=== PATIENT | male | born 1955 | race Caucasian/White ===

== ENCOUNTER → 2016-12-03 | Day surgery (SDC) | payer BC ==
[~2016-12-03] MED LIST: D5 LR 1000 ML 1,000 ML IV ONE; DIPRIVAN VIAL 20 ML ONE
[2016-12-03 11:52] VITALS: BP 137/85
== END ==
LOC: SURG1 08:49
PROVIDERS: ATTEND Internal Medicine Gastroenterology
PROC: 0DBH8ZX Excision of Cecum, Via Natural or Artificial Opening Endoscopic, Diagnostic (ICD-10-PCS; principal; 2016-12-03 10:30)
PROC: 0DBN8ZX Excision of Sigmoid Colon, Via Natural or Artificial Opening Endoscopic, Diagnostic (ICD-10-PCS; principal; 2016-12-03 10:30)
PROC: 0DJD8ZZ Inspection of Lower Intestinal Tract, Via Natural or Artificial Opening Endoscopic (ICD-10-PCS; principal; 2016-12-03 10:30)
DX: Z12.11 Encounter for screening for malignant neoplasm of colon (principal); K63.5 Polyp of colon; K57.30 Diverticulosis of large intestine without perforation or abscess without bleeding; K64.8 Other hemorrhoids; D12.0 Benign neoplasm of cecum; D12.5 Benign neoplasm of sigmoid colon
CPT/HCPCS: A4217; J3490; J7120

== ENCOUNTER 2025-05-21 16:16 | Observation (INO) ==
--- NOTE | 2025-05-21 16:31 | EKG ---
Test Reason : chest pain Blood Pressure : */* mmHG Vent. Rate : 79 BPM Atrial Rate : 79 BPM P-R Int : 176 ms QRS Dur : 152 ms QT Int : 422 ms P-R-T Axes : 39 -63 25 degrees QTc Int : 483 ms Normal sinus rhythm Right bundle branch block Left anterior fascicular block Bifascicular block Abnormal ECG No previous ECGs available Confirmed by Mohamud Solis MD ([id number]) on 05/22/2025 5:49:22 AM Referred By: Confirmed By: Mohamud Solis MD
[2025-05-21 16:33] LABS: MEAN PLATELET VOLUME 8.8 fL (7.4-11.0); RED CELL DISTRIBUTION WIDTH 14.2 % (11.6-16.5)
[2025-05-21] MEDS: ZOFRAN INJ 4 MG VIAL IVP ONE (16:38)
[2025-05-21 16:41] LABS: INR 0.92 (0.8-1.3)
[2025-05-21 16:48] LABS: COR NA(FOR HYPERGLY) 140 mmol/L (136-145); CREATININE 1.20 mg/dL (0.70-1.30); eGFR NON BLACK RACES > 60 (>60)
--- NOTE | 2025-05-21 17:01 | DR.CP ---
HPI Time Seen Time Seen by Provider: 05/21/25 16:56 PCP Primary Care Physician: Hammad HPI Comment HPI Comment: Patient complains of chest pain intermittently today. Patient states that he has had chest pain like this previously with unknown diagnosis, please see nurses notes Complaint Chief Complaint:: Patient states that for the past 3 days he has been having chest pain on the right side of his chest after taking his night medications. He states that he takes insulin around that time as well. Each time that he takes the medication he throws up, and starts having chest pain. He states that he has had shortness of breath for a couple of years now due to lymphoma (in remission), but it got worse over the past couple of days. Right now he states that the chest pain feels superficial on the right side of his chest and he rates the pain a 5/10. COVID-19 Coronavirus risk:travel/contact w/high risk person: No Has patient experienced Coronavirus symptoms: No Source History Provided: Patient Mode of Arrival Mode of Arrival: Wheelchair Timing Onset of Chief Complaint: 05/18/25 Location Chest Pain Radiation Location: None Associated Signs and Symptoms Associated Signs and Symptoms: Shortness of Breath and Nausea/Vomiting PMH PMH Past Medical History: Yes Past Medical History: Diabetes, Dyslipidemia, Hypertension, Hypothyroidism and Cancer Past Medical History Comment: Lymphoma Past Surgical History: Yes Surgical History: Abdominal Surgery, Ortho Surgery and Other Past Surgical History Comment: kidney removed Family History History of Family Medical Conditions: Yes Family Medical History: Diabetes Mellitus, Coronary Artery Disease and Hypertension Social History Does patient currently use any type of tobacco product: No Have you used tobacco products in the last 12 months: No Type of Tobacco Use: None Does any household member use tobacco: No Alcohol Use: None Do you use any recreational Drugs:: No Lives With: Family Lives Where: Home Travel Risk Coronavirus risk:travel/contact w/high risk person: No Has patient experienced Coronavirus symptoms: No Infectious screening In the last 2 months have you had wt loss of >10#?: NO Have you had fever, night sweats or hemotysis?: No Have you traveled outside the country in the last 6 months?: No Isolation: Standard ROS Review of Systems Constitutional: See HPI Eyes: No Symptoms Reported ENTM: No Symptoms Reported Respiratoy: No Symptoms Reported Cardiovascular: See HPI and Chest Pain; negative Edema, Palpitations, Syncope or Cyanosis Gastrointestinal/Abdominal: See HPI and Abdominal Pain (Intermittent abdominal pain with chest pain) Genitourinary: No Symptoms Reported Neurological: No Symptoms Reported Musculoskeletal: No Symptoms Reported Integumentary: No Symptoms Reported Hematologic/Lymphatic: No Symptoms Reported Endocrine: No Symptoms Reported Psychiatric: No Symptoms Reported All Other Systems: Reviewed and Negative PE Vitals Vitals: Vital Signs Temperature 97.8 F Pulse Rate 72 Pulse Rate 81 Pulse Rate 69 Pulse Rate 77 Pulse Rate 75 Pulse Rate 71 Pulse Rate 68 Pulse Rate 72 Pulse Rate 78 Pulse Rate 82 Respiratory Rate 34 Respiratory Rate 35 Respiratory Rate 25 Respiratory Rate 27 Respiratory Rate 36 Respiratory Rate 18 Respiratory Rate 14 Respiratory Rate 24 Respiratory Rate 33 Respiratory Rate 18 Blood Pressure 176/81 Blood Pressure 192/91 O2 Sat by Pulse Oximetry 98 O2 Sat by Pulse Oximetry 96 O2 Sat by Pulse Oximetry 96 O2 Sat by Pulse Oximetry 92 O2 Sat by Pulse Oximetry 95 O2 Sat by Pulse Oximetry 91 O2 Sat by Pulse Oximetry 91 O2 Sat by Pulse Oximetry 95 O2 Sat by Pulse Oximetry 96 O2 Sat by Pulse Oximetry 97 General Limitations: No Limitations General Appearance: Alert and In No Apparent Distress Head Head Exam: Normal Inspection Eyes Eye exam: Normal Appearance ENT ENT Exam: Normal Exam Chest Chest Inspection: Normal Inspection Respiratory Respiratory Exam: Normal Lung Sounds Bilat Cardiovascular Cardiovascular Exam: Regular Rate and Normal Rhythm Pulse: Normal Edema: Normal Abdominal Exam Abdominal Exam: Normal Inspection, Normal Bowel Sounds and Soft Extremities Extremities Exam: Normal Inspection Back Back Exam: Normal Inspection Neurologic Neurological Exam: Alert and Oriented X3 Psychiatric Psychiatric Exam: Normal Affect and Normal Mood Skin Skin Exam: Warm, Dry, Intact and Normal Color COURSE Treatment Treatment: Discussed results with patient and family requested admission discussed with Dr. Georges who agreed with admission orders placed Consultation Called: 19:03 Consultation Comments: Discussed case with Dr. Georges he is agreeable with admission ROR Labs Reviewed 05/21/25 16:26 05/21/25 16:26 Laboratory: WBC 8.2 X10^3/uL (3.6-10.0) 05/21/25 16:26 RBC 5.90 X10^6/uL (4.7-6.0) 05/21/25 16:26 Hgb 17.1 g/dL (13.5-18.0) 05/21/25 16:26 Hct 49.1 % (42.0-54.0) 05/21/25 16: MCV 83.1 fL (80.0-100.0) 05/21/25 16: MCH 29.0 pg (27.0-34.0) 05/21/25 16: MCHC 34.8 g/dL (33.0-35.0) 05/21/25 16: RDW 14.2 % (11.6-16.5) 05/21/25 16: Plt Count 193 X10^3/uL (150.0-450.0) 05/21/25 16: MPV 8.8 fL (7.4-11.0) 05/21/25 16: Neut % (Auto) 49.5 % (42.0-75.0) 05/21/25 16: Lymph % (Auto) 38.7 % (21.0-51.0) 05/21/25 16: [place] % (Auto) 11.1 % (0.0-13.0) 05/21/25 16: Eos % (Auto) 0.1 % (0.9-2.9) L 05/21/25 16: Baso % (Auto) 0.6 % (0.2-1.0) 05/21/25 16: Neut # (Auto) 4.1 x10^3/uL (2.2-4.8) 05/21/25 16: Lymph # (Auto) 3.2 X10^3/uL (1.3-2.9) H 05/21/25 16: [place] # (Auto) 0.9 x10^3/uL (0.3-0.8) H 05/21/25 16:26 Eos # (Auto) 0.0 x10^3/uL (0.0-0.2) 05/21/25 16: Baso # (Auto) 0.0 X10^3/uL (0.0-0.1) 05/21/25 16: Absolute Nucleated RBC 0.2 /100WBC 05/21/25 16: PT 12.4 SECONDS (11.8-14.3) 05/21/25 16: INR Target Range - 05/21/25 16: INR 0.92 (0.8-1.3) 05/21/25 16:26 APTT 34.3 SECONDS (22.9-36.5) 05/21/25 16:26 PTT Comment - 05/21/25 16:26 D-Dimer 1.14 ug/ml (0.0-0.57) H 05/21/25 16:26 Sodium 138 mmol/L (136-145) 05/21/25 16:26 Corrected Sodium 140 mmol/L (136-145) 05/21/25 16:26 Potassium 2.9 mmol/L (3.5-5.1) L* 05/21/25 16:26 Chloride 93 mmol/L (98-107) L 05/21/25 16:26 Carbon Dioxide 36.5 mmol/L (21-32) H 05/21/25 16:26 BUN 19 mg/dL (7-18) H 05/21/25 16:26 Creatinine 1.20 mg/dL (0.70-1.30) 05/21/25 16:26 Est GFR (MDRD) Af Amer > 60 (>60) 05/21/25 16:26 Est GFR (MDRD) Non-Af > 60 (>60) 05/21/25 16:26 Glucose 179 mg/dL (65-99) H 05/21/25 16:26 Calcium 9.6 mg/dL (8.5-10.1) 05/21/25 16:26 Corrected Calcium TNP 05/21/25 16:26 Total Bilirubin 1.10 mg/dL (0.2-1.0) H 05/21/25 16:26 AST 37 Units/L (15-37) 05/21/25 16:26 ALT 49 Units/L (12-78) 05/21/25 16:26 Alkaline Phosphatase 106 Units/L (46-116) 05/21/25 16:26 Creatine Kinase 110 Units/L (39-308) 05/21/25 16:26 Troponin I High Sens 16.5 ng/L (4.0-60.0) 05/21/25 18:17 B-Natriuretic Peptide < 5.0 pg/mL (0-79) 05/21/25 16:26 Total Protein 7.8 g/dL (6.4-8.2) 05/21/25 16:26 Albumin 4.3 g/dL (3.4-5.0) 05/21/25 16:26 Globulin 3.5 g/dL (2.5-4.5) 05/21/25 16:26 Albumin/Globulin Ratio 1.2 Ratio (1.1-2.1) 05/21/25 16:26 Other Results Comments: [id number] 1955 Sex: M Location: ER Order Number(s): [id number] Procedure(s):CTA, CHEST Ordering Physician: IVAN STORM Primary Care: Julio Cueva Service Date: 02/01/22 Service Time: 1204 CTA CHEST CLINICAL INDICATION: Chest pain and elevated D-dimer. PROCEDURE: Non gated axial images of the chest were obtained with intravenous contrast according to pulmonary embolism protocol. MIPS were reconstructed Dose reduction techniques including Automated Exposure Control (AEC) and adjustment of mA and kV were utlized. COMPARISON:None FINDINGS: No evidence of a pulmonary embolism to the level of the segmental pulmonary arteries. The heart is normal in size . No pericardial effusion . No suspicious mediastinal or axillary lymph nodes . No focal consolidations, pleural effusions or pneumothorax .Airways are patent . No suspicious pulmonary nodules or masses . Limited images of the upper abdomen are unremarkable. No aggressive osseous lesions. IMPRESSION: 1. No evidence of pulmonary embolism. Electronically signed by: SANTA PONCE (Feb 01, 2022 12:52:42) [id number] 1955 Sex: M Location: ER Order Number(s): [id number] Procedure(s):BRAIN CT W/O CON Ordering Physician: Te Epstein Primary Care: Neil PAYAN Service Date: 05/21/25 Service Time: 171 EXAM: BRAIN W/O CON HISTORY: past 3 days he has been having chest pain on the right side of his chest after taking his night medications.; COMPARISON: MRI brain from January 09, 2020 TECHNIQUE: Axial non-contrast images of the head were obtained with coronal and sagittal reformats provided. Radiation dose: 870.14 mGy-cm total DLP FINDINGS: No abnormal areas of acute attenuation in the brain parenchyma. Antony-white differentiation remains intact. No intracranial, extra-axial, fluid collection. No hemorrhage. Periventricular chronic microvascular disease. No mass, mass effect or midline shift. Age related brain parenchymal global atrophy. No ventriculomegaly. No acute fracture. Sinuses are well aerated. Mastoid air cells are well aerated. Globes and intra-orbital contents are unremarkable. IMPRESSION: No acute intracranial abnormality identified. THIS IS AN ELECTRONICALLY VERIFIED FINAL REPORT 05/21/2025 6:06 PM - Electronically signed by Jacob Rai MD Opioid Opioid Risk Tool Age (Catarino box if 16-45): No History of Preadolescent Sexual Abuse: No Total: 0 Total Score Risk Category: Low Risk Copyright: [facility] predicting aberrant behaviors Discharge Plan Diagnosis Discharge Problem: Altered mental status, Hypokalemia Discharge Plan Patient Disposition: ADMITTED INPATIENT Condition: Stable Prescriptions: No Action atorvastatin 20 MG tablet 20 mg PO DAILY amlodipine 5 MG tablet 5 mg PO DAILY atorvastatin 40 mg tablet 40 mg PO QPM metformin 500 mg tablet 500 mg PO QDAY gabapentin 600 mg tablet 600 mg PO QPM citalopram 10 mg tablet 10 mg PO QDAY glipizide 10 mg tablet 10 mg PO QDAY potassium chloride 20 mEq tablet,ER particles/crystals 20 meq PO TID temazepam 30 mg capsule 30 mg PO QPM pramipexole 0.25 mg tablet 0.25 mg PO TID hydrochlorothiazide 25 mg tablet 25 mg PO QDAY insulin lispro 100 unit/mL solution 10 unit subcut AC cefdinir 300 mg capsule 300 mg PO BID montelukast [Singulair] 10 mg tablet 10 mg PO QDAY Qty: 30 0RF methylprednisolone [Medrol (Trung)] 4 mg tablets,dose pack See Rx Instructions .ROUTE .COMPLEX Qty: 21 0RF Rx Instructions: for 6 days albuterol sulfate 90 mcg/actuation HFA aerosol inhaler 2 puff inhalation Q6H PRNQty: 6.7 0RF fluticasone propionate [Flonase Allergy Relief] 50 mcg/actuation spray,suspension 1 spray intranasal QDAY Qty: 16 0RF Rx Instructions: administer into each nostril levocetirizine [Xyzal] 5 mg tablet 5 mg PO QDAY PRNQty: 30 0RF Health Concerns: Post Hospitalization: new medications and changes needed to prevent readmission or further decline. Pt educated and given instructions on all concerns. Plan of Treatment: Continue with present treatment and follow up plan. Pt is to keep follow up appointment as instructed and take medications as ordered. Orders to Discharge Patient Discharge Orders: Transfer (Routine); Ordered 05/21/25 Ordered By: Te Epstein Follow ups/Referrals Follow ups/Referrals: N[facility],None [Primary Care Provider] - 3 days Instructions Stand Alone Forms: Find Help Web Site, Post Hospital Follow Up Care Print Language: ROMANIAN
[2025-05-21] MEDS: K-DUR TAB 20 MEQ PO ONE (17:22)
--- NOTE | 2025-05-21 18:10 | CT ---
EXAM: BRAIN W/O CON HISTORY: past 3 days he has been having chest pain on the right side of his chest after taking his night medications.; COMPARISON: MRI brain from January 09, 2020 TECHNIQUE: Axial non-contrast images of the head were obtained with coronal and sagittal reformats provided. Radiation dose: 870.14 mGy-cm total DLP FINDINGS: No abnormal areas of acute attenuation in the brain parenchyma. Antony-white differentiation remains intact. No intracranial, extra-axial, fluid collection. No hemorrhage. Periventricular chronic microvascular disease. No mass, mass effect or midline shift. Age related brain parenchymal global atrophy. No ventriculomegaly. No acute fracture. Sinuses are well aerated. Mastoid air cells are well aerated. Globes and intra-orbital contents are unremarkable. IMPRESSION: No acute intracranial abnormality identified. THIS IS AN ELECTRONICALLY VERIFIED FINAL REPORT 05/21/2025 6:06 PM - Electronically signed by Jacob Rai MD
--- NOTE | 2025-05-21 18:29 | CT ---
EXAM: CTA, CHEST HISTORY: past 3 days he has been having chest pain on the right side of his chest after taking his night medications.; COMPARISON: CTA of the chest February 01, 2022 TECHNIQUE: CT angiography of the chest with intravenous contrast. Three-dimensional reconstructions and/or MIPS images were produced and reviewed. FINDINGS: Bolus timing is adequate. Negative for pulmonary embolus. The thoracic aorta tapers normally. Coronary atherosclerotic calcifications are visible in the LAD and the circumflex. Limited visualization of the upper abdomen demonstrates stones in the gallbladder. No acute upper abdominal process. The lungs demonstrate moderate bilateral dependent ground-glass airspace opacities which are nonspecific could represent pneumonia, atelectasis or pulmonary edema. Multilevel degenerative spinal changes are noted. IMPRESSION: Negative for pulmonary embolus. Moderate bilateral dependent ground-glass airspace opacities are nonspecific in appearance and could represent pneumonia, atelectasis, pulmonary edema or some combination. Cholelithiasis. All CT scans at this facility use dose modulation, iterative reconstruction, and/or weight based dosing when appropriate to reduce radiation dose to as low as reasonably achievable. THIS IS AN ELECTRONICALLY VERIFIED FINAL REPORT 05/21/2025 6:23 PM - Electronically signed by Cameron Pina MD
[2025-05-21] MEDS: APRESOLINE INJ 20 MG VIAL IVP ONE (19:54)
[2025-05-21] MEDS: CATAPRES TAB 0.1 MG PO ONE (20:42)
[2025-05-21] MEDS ORDERED: ULTRAM PO PRN (21:20)
[2025-05-21] MEDS ORDERED: TYLENOL 325 MG TAB PO PRN (21:20)
[2025-05-21] MEDS ORDERED: NORCO 5/325 MG TAB PO PRN (21:20)
[2025-05-21] MEDS: DUONEB 0.5 MG/3 MG (3 mL) NEB SCH (21:51)
[2025-05-21] MEDS: NS 1,000 ML IV 1,000 ML IV SCH (22:04)
[2025-05-21] MEDS: LEVAQUIN PREMIX IV 750 MG 750 MG/150 ML BAG IV SCH (22:04)
[2025-05-21] MEDS: K-DUR TAB 20 MEQ PO SCH (22:05)
[2025-05-21 22:14] VITALS: BMI 29.2
[2025-05-21] MEDS: SNACK - Diabetic Appropriate PO SCH (22:15)
[2025-05-21] MEDS: NovoLIN R (or HumuLIN R) SUBCUT PRN (22:24)
[2025-05-22] MEDS ORDERED: K-DUR TAB 20 MEQ PO SCH
[2025-05-22] MEDS: K-DUR TAB 20 MEQ PO ONE (00:03)
[2025-05-22 01:59] LABS: BLOOD/HEMOGLOBIN,URINE NEGATIVE (NEGATIVE); LEUKOCYTE ESTERASE ,URINE NEGATIVE (NEGATIVE); NITRITES,URINE NEGATIVE (NEGATIVE)
[2025-05-22 02:10] LABS: APPEARANCE,URINE CLEAR (CLEAR)
[2025-05-22 02:14] LABS: SQUAMOUS EPITHELIAL CELL,UR NEGATIVE /HPF (NEGATIVE)
[2025-05-22 05:54] LABS: MEAN PLATELET VOLUME 9.5 fL (7.4-11.0); RED CELL DISTRIBUTION WIDTH 14.2 % (11.6-16.5)
[2025-05-22 06:06] LABS: COR NA(FOR HYPERGLY) 140 mmol/L (136-145); CREATININE 1.10 mg/dL (0.70-1.30); eGFR NON BLACK RACES > 60 (>60)
[2025-05-22] MEDS ORDERED: CONSULT PHARMACY - POTASSIUM & MAGNESIUM XX SCH (07:00)
[2025-05-22] MEDS: ZOFRAN INJ 4 MG VIAL ONE (07:57)
[2025-05-22] MEDS: DUONEB 0.5 MG/3 MG (3 mL) NEB ONE (07:58)
[2025-05-22] MEDS: LEVAQUIN PREMIX IV 750 MG 750 MG/150 ML BAG IV SCH (07:58)
[2025-05-22] MEDS: CATAPRES TAB 0.1 MG ONE (07:58)
[2025-05-22] MEDS: NS 100 ML IV 100 ML ONE (07:58)
[2025-05-22] MEDS: APRESOLINE INJ 20 MG VIAL ONE (07:58)
[2025-05-22] MEDS: CONSULT PHARMACY - POTASSIUM & MAGNESIUM XX SCH (07:58)
[2025-05-22] MEDS: OMNIPAQUE 350 mg/mL 100 mL BTL 100 ML ONE (07:59)
[2025-05-22] MEDS: NORVASC TAB 5 MG PO SCH (09:03)
[2025-05-22] MEDS: HYDROCHLOROTHIAZIDE 25 MG TAB PO SCH (09:03)
[2025-05-22] MEDS: SINGULAIR TAB 10 MG PO SCH (09:03)
[2025-05-22] MEDS: FLONASE NASAL SPRAY ENOSTRIL SCH (09:03)
[2025-05-22] MEDS: CELEXA PO SCH (09:03)
[2025-05-22] MEDS: K-DUR TAB 20 MEQ PO SCH (09:03)
--- NOTE | 2025-05-22 10:19 | DR.H&P ---
H&P History & Physical for Day of: H&P Date: 05/22/25 Chief Complaint Chief Complaint: SOB, cough History of Present Illness History of Present Illness: Patient is a 69-year-old male with a past medical history of type 2 diabetes, hypertension, lymphoma, hyperlipidemia and dementia presented with worsening dyspnea and cough. He was also complaining of intermittent chest pain. ER workup included labs which showed elevated D-dimer, low potassium. Troponin x [address] chest was done which did not show PE but did show ground glass opacities concerning for pneumonia. CT brain did not show any acute changes. Patient was started on IV antibiotics and admitted for further management. He is currently on 2L nasal cannula. He reports feeling better. Labs/imaging reviewed: - WBC 6.3 hemoglobin 15.8 potassium 3.1 creatinine 1.10 magnesium 2.1 D-dimer 1.14 - AIT pending - CTA chest reviewed, CT brain reviewed Plan: Admit to [facility]. Wean O2 as tolerated. Continue IV antibiotics and bronchodilators. Continue IS. Add Solu-Medrol. Follow pending cultures. Resume home medications. Replace electrolytes as per protocol. PT/OT as tolerated. Monitor a.m. labs and imaging. Time spent for clinical assessment, reviewing labs and imaging, physical exam, decision making and documentation greater than 45 minutes. Past Medical History Past Medical History: Diabetes, Dyslipidemia, Hypertension, Hypothyroidism and Cancer Past Surgical History Surgical History: Abdominal Surgery and Ortho Surgery Family History Family Medical History: Diabetes Mellitus, Cancer and Coronary Artery Disease Social History Does patient currently use any type of tobacco product: No Have you used tobacco products in the last 12 months: No Type of Tobacco Use: None Does any household member use tobacco: No Alcohol Use: None Drug Use: None Medications Home Medications: Home Medications Medication Instructions Recorded Confirmed Type amlodipine 5 mg tablet 5 mg PO DAILY 12/03/1605/21 History atorvastatin 20 mg tablet 20 mg PO DAILY 12/03/1612/22 History atorvastatin 40 mg tablet 40 mg PO QPM 09/02/24 History cefdinir 300 mg capsule 300 mg PO BID 09/02/2409/02 History citalopram 10 mg tablet 10 mg PO QDAY 09/02/2405/21 History gabapentin 600 mg tablet 600 mg PO QPM 09/02/2405/21 History glipizide 10 mg tablet 10 mg PO QDAY 09/02/2405/21 History hydrochlorothiazide 25 mg tablet 25 mg PO QDAY 5 05/21/25 History insulin lispro 100 unit/mL 10 unit subcut AC 09/02/24 09/02/24 History subcutaneous solution metformin 500 mg tablet 500 mg PO QDAY 09/02/2405/01 History potassium chloride 20 mEq 20 meq PO TID 09/02/2405/21 History tablet,extended release(part/cryst) pramipexole 0.25 mg tablet 0.25 mg PO TID 09/02/24 History temazepam 30 mg capsule 30 mg PO QPM 09/02/24 History Allergies Allergies Allergy/AdvReac Type Severity Reaction Status Date / Time No Known Drug Allergies Allergy Unknown Verified 09/02/24 13:59 Labs 05/22/25 05:13 05/22/25 05:13 Labs: Laboratory WBC 6.3 X10^3/uL (3.6-10.0) 05/22/25 05:13 RBC 5.40 X10^6/uL (4.7-6.0) 05/22/25 05:13 Hgb 15.8 g/dL (13.5-18.0) 05/22/25 05:13 Hct 44.3 % (42.0-54.0) 05/22/25 05:13 MCV 81.9 fL (80.0-100.0) 05/22/25 05:13 MCH 29.3 pg (27.0-34.0) 05/22/25 05:13 MCHC 35.8 g/dL (33.0-35.0) H 05/22/25 05:13 RDW 14.2 % (11.6-16.5) 05/22/25 05:13 Plt Count 164 X10^3/uL (150.0-450.0) 05/22/25 05:13 MPV 9.5 fL (7.4-11.0) 05/22/25 05:13 Neut % (Auto) 40.6 % (42.0-75.0) L 05/22/25 05:13 Lymph % (Auto) 48.4 % (21.0-51.0) 05/22/25 05:13 [place] % (Auto) 9.7 % (0.0-13.0) 05/22/25 05:13 Eos % (Auto) 1.0 % (0.9-2.9) 05/22/25 05:13 Baso % (Auto) 0.3 % (0.2-1.0) 05/22/25 05:13 Neut # (Auto) 2.6 x10^3/uL (2.2-4.8) 05/22/25 05:13 Lymph # (Auto) 3.1 X10^3/uL (1.3-2.9) H 05/22/25 05:13 [place] # (Auto) 0.6 x10^3/uL (0.3-0.8) 05/22/25 05:13 Eos # (Auto) 0.1 x10^3/uL (0.0-0.2) 05/22/25 05:13 Baso # (Auto) 0.0 X10^3/uL (0.0-0.1) 05/22/25 05:13 Absolute Nucleated RBC 0.4 /100WBC 05/22/25 05:13 PT 12.4 SECONDS (11.8-14.3) 05/21/25 16:26 INR Target Range - 05/21/25 16:26 INR 0.92 (0.8-1.3) 05/21/25 16:26 APTT 34.3 SECONDS (22.9-36.5) 05/21/25 16:26 PTT Comment - 05/21/25 16:26 D-Dimer 1.14 ug/ml (0.0-0.57) H 05/21/25 16:26 Sodium 139 mmol/L (136-145) 05/22/25 05:13 Corrected Sodium 140 mmol/L (136-145) 05/22/25 05:13 Potassium 3.1 mmol/L (3.5-5.1) L 05/22/25 05:13 Chloride 96 mmol/L (98-107) L 05/22/25 05:13 Carbon Dioxide 35.4 mmol/L (21-32) H 05/22/25 05:13 BUN 17 mg/dL (7-18) 05/22/25 05:13 Creatinine 1.10 mg/dL (0.70-1.30) 05/22/25 05:13 Est GFR (MDRD) Af Amer > 60 (>60) 05/22/25 05:13 Est GFR (MDRD) Non-Af > 60 (>60) 05/22/25 05:13 Glucose 139 mg/dL (65-99) H 05/22/25 05:13 POC Glucose (mg/dL) 145 mg/dL (65-99) H 05/22/25 05:16 Calcium 9.2 mg/dL (8.5-10.1) 05/22/25 05:13 Corrected Calcium TNP 05/22/25 05:13 Magnesium 2.1 mg/dL (2.0-2.9) 05/22/25 05:13 Total Bilirubin 0.90 mg/dL (0.2-1.0) 05/22/25 05:13 AST 32 Units/L (15-37) 05/22/25 05:13 ALT 42 Units/L (12-78) 05/22/25 05:13 Alkaline Phosphatase 89 Units/L (46-116) 05/22/25 05:13 Creatine Kinase 110 Units/L (39-308) 05/21/25 16:26 Troponin I High Sens 16.5 ng/L (4.0-60.0) 05/21/25 18:17 B-Natriuretic Peptide < 5.0 pg/mL (0-79) 05/21/25 16:26 Total Protein 7.0 g/dL (6.4-8.2) 05/22/25 05:13 Albumin 3.7 g/dL (3.4-5.0) 05/22/25 05:13 Globulin 3.3 g/dL (2.5-4.5) 05/22/25 05:13 Albumin/Globulin Ratio 1.1 Ratio (1.1-2.1) 05/22/25 05:13 Specimen Type Clean catch urine 05/22/25 01:45 Urine Color Yellow (YELLOW) 05/22/25 01:45 Urine Appearance Clear (CLEAR) 05/22/25 01:45 Urine pH 6.5 (5.0 - 8.0) 05/22/25 01:45 Ur Specific [place] 1.015 (1.000-1.030) 05/22/25 01:45 Urine Protein 2+ (NEGATIVE) 05/22/25 01:45 Urine Glucose (UA) Negative (NEGATIVE) 05/22/25 01:45 Urine Ketones Negative (NEGATIVE) 05/22/25 01:45 Urine Blood Negative (NEGATIVE) 05/22/25 01:45 Urine Nitrite Negative (NEGATIVE) 05/22/25 01:45 Urine Bilirubin Negative (NEGATIVE) 05/22/25 01:45 Urine Urobilinogen Normal (NORMAL) 05/22/25 01:45 Ur Leukocyte Esterase Negative (NEGATIVE) 05/22/25 01:45 Urine RBC 0-2 /HPF (0-3) 05/22/25 01:45 Urine WBC 0-2 /HPF (0-5) 05/22/25 01:45 Ur Squamous Epith Cells Negative /HPF (NEGATIVE) 05/22/25 01:45 Ur Renal Epithelial Cell Moderate /HPF (NEGATIVE) 05/22/25 01:45 Urine Bacteria Negative /HPF (NEGATIVE) 05/22/25 01:45 Ur Culture Indicated? No/not indicated 05/22/25 01:45 Review of Systems Constitutional: Weakness Eyes: No Symptoms Reported ENT: No Symptoms Reported Respiratory: Cough, Shortness of Breath, Pleuritic Pain and Sputum Cardiovascular: No Symptoms Reported Gastrointestinal: No Symptoms Reported Genitourinary: No Symptoms Reported Musculoskeletal: No Symptoms Reported Skin: No Symptoms Reported Neurological: No Symptoms Reported Physical Exam Vital Signs: Vital Signs Temperature 98.1 F Pulse Rate [Left Radial] 80 Pulse Rate 75 Respiratory Rate 18 Blood Pressure [Left Arm] 137/70 O2 Sat by Pulse Oximetry 98 O2 Sat by Pulse Oximetry 98 Oriented: Normal Throat: Dry Respiratory: Rhonchi Throughout and Wheezes Throughout Cardiovascular: Normal Auscultation: Bowel Sounds: Normal Palpation: Normal Tenderness: Normal Skin: Normal Musculoskeletal: Normal Psychiatric: Normal Mood Description: Calm Affect: Normal Speech Pattern: Clear and Appropriate Assessment/Plan (1) Pneumonia: Qualifiers: Laterality: unspecified laterality Lung location: unspecified part of lung Pneumonia type: due to unspecified organism Qualified Code(s): J18.9 - Pneumonia, unspecified organism Status: Acute (2) COPD exacerbation: Status: Acute (3) Altered mental status: Qualifiers: Altered mental status type: unspecified Qualified Code(s): R41.82 - Altered mental status, unspecified Status: Acute (4) Hypokalemia: Status: Acute (5) Diabetes mellitus: Qualifiers: Diabetes mellitus complication status: without complication Diabetes mellitus 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
[2025-05-22] MEDS ORDERED: PHARMACY CONSULT XX SCH (11:00)
[2025-05-22] MEDS: LOVENOX INJ 40 MG SYR SC SCH (11:55)
[2025-05-22] MEDS: RESTORIL CAP 15 MG PO SCH (20:41)
[2025-05-22] MEDS: LIPITOR TAB 40 MG PO SCH (20:41)
[2025-05-22] MEDS: NEURONTIN TAB 600 MG PO SCH (20:41)
[2025-05-23 06:11] LABS: MEAN PLATELET VOLUME 9.7 fL (7.4-11.0); RED CELL DISTRIBUTION WIDTH 14.0 % (11.6-16.5)
[2025-05-23 06:29] LABS: COR NA(FOR HYPERGLY) 143 mmol/L (136-145); CREATININE 1.10 mg/dL (0.70-1.30); eGFR NON BLACK RACES > 60 (>60)
[2025-05-23] MEDS: GLUCOPHAGE PO SCH (10:12)
[2025-05-23] MEDS: GLUCOPHAGE ONE (10:57)
[2025-05-23 12:16] VITALS: PULSE 83
[2025-05-23] MEDS: MIRAPEX TAB 0.25 MG PO SCH (13:10)
[2025-05-23 16:10] VITALS: BP 126/66; RESP 20; TEMP 97.4; O2SAT 95
--- NOTE | 2025-05-25 13:20 | W.DIS.FURT ---
Summary of Discharge Discharge Summary of Date Date of Exam: 05/23/25 Admission Date Date of Admission: 05/21/25 Admission Diagnosis Patient Problems (Updated 05/22/25 @ 10:18 by Liane Ralph MD) Hypokalemia (Acute) E87.6 Altered mental status (Acute) R41.82 Hospital Course: Patient is a 69-year-old male with a past medical history of type 2 diabetes, hypertension, lymphoma, hyperlipidemia and dementia presented with worsening dyspnea and cough. He was also complaining of intermittent chest pain. ER workup included labs which showed elevated D-dimer, low potassium. Troponin x [address] chest was done which did not show PE but did show ground glass opacities concerning for pneumonia. CT brain did not show any acute changes. Patient was started on IV antibiotics and admitted for further management. He is currently on 2L nasal cannula. He reports feeling better. He was also started on steroids. His labs were monitored daily and electrolytes replaced as needed. AIT was negative. He was doing well the following day. He did ambulate with respiratory and did not qualify for home oxygen. He was stable to be discharged home on p.o. antibiotics and steroids. He will follow-up with PCP as scheduled. Vital Signs: Vital Signs (72 hours) 05/21/25 16:30 05/21/25 16:35 05/21/25 16:45 Temperature 97.8 F Pulse Rate 82 78 72 Pulse Rate [Left Radial] Respiratory Rate 18 33 H 24 Blood Pressure 192/91 Blood Pressure [Left Arm] O2 Sat by Pulse Oximetry 97 96 95 Oxygen Delivery Method Room Air Oxygen Flow Rate FIO2% 05/21/25 17:00 05/21/25 17:00 05/21/25 17:15 Temperature Pulse Rate 68 71 Pulse Rate [Left Radial] Respiratory Rate 14 18 Blood Pressure 176/81 Blood Pressure [Left Arm] O2 Sat by Pulse Oximetry 91 L 91 L Oxygen Delivery Method Oxygen Flow Rate FIO2% 05/21/25 17:38 05/21/25 17:45 05/21/25 18:00 Temperature Pulse Rate 75 77 69 Pulse Rate [Left Radial] Respiratory Rate 36 H 27 H 25 H Blood Pressure Blood Pressure [Left Arm] O2 Sat by Pulse Oximetry 95 92 L 96 Oxygen Delivery Method Oxygen Flow Rate FIO2% 05/21/25 18:15 05/21/25 18:30 05/21/25 18:58 Temperature Pulse Rate 81 72 89 Pulse Rate [Left Radial] Respiratory Rate 35 H 34 H 36 H Blood Pressure Blood Pressure [Left Arm] O2 Sat by Pulse Oximetry 96 98 Oxygen Delivery Method Oxygen Flow Rate FIO2% 05/21/25 19:00 05/21/25 19:01 05/21/25 19:01 Temperature Pulse Rate 69 68 Pulse Rate [Left Radial] Respiratory Rate 19 13 Blood Pressure 206/95 Blood Pressure [Left Arm] O2 Sat by Pulse Oximetry 94 L 94 L Oxygen Delivery Method Oxygen Flow Rate FIO2% 05/21/25 19:15 05/21/25 19:15 05/21/25 19:30 Temperature Pulse Rate 68 69 Pulse Rate [Left Radial] Respiratory Rate 16 16 Blood Pressure 188/85 Blood Pressure [Left Arm] O2 Sat by Pulse Oximetry 94 L 94 L Oxygen Delivery Method Oxygen Flow Rate FIO2% 05/21/25 19:30 05/21/25 19:45 05/21/25 19:45 Temperature Pulse Rate 66 Pulse Rate [Left Radial] Respiratory Rate 17 Blood Pressure 187/95 183/88 Blood Pressure [Left Arm] O2 Sat by Pulse Oximetry 93 L Oxygen Delivery Method Oxygen Flow Rate FIO2% 05/21/25 19:56 05/21/25 19:56 05/21/25 20:00 Temperature Pulse Rate 68 72 Pulse Rate [Left Radial] Respiratory Rate 23 22 Blood Pressure 216/97 Blood Pressure [Left Arm] O2 Sat by Pulse Oximetry 96 96 Oxygen Delivery Method Oxygen Flow Rate FIO2% 05/21/25 20:00 05/21/25 20:05 05/21/25 20:05 Temperature Pulse Rate 78 Pulse Rate [Left Radial] Respiratory Rate 33 H Blood Pressure 189/89 194/90 Blood Pressure [Left Arm] O2 Sat by Pulse Oximetry 96 Oxygen Delivery Method Oxygen Flow Rate FIO2% 05/21/25 20:10 05/21/25 20:10 05/21/25 20:15 Temperature Pulse Rate 76 Pulse Rate [Left Radial] Respiratory Rate 20 Blood Pressure 191/84 195/91 Blood Pressure [Left Arm] O2 Sat by Pulse Oximetry 94 L Oxygen Delivery Method Oxygen Flow Rate FIO2% 05/21/25 20:15 05/21/25 20:15 05/21/25 20:20 Temperature Pulse Rate 78 Pulse Rate [Left Radial] Respiratory Rate 18 Blood Pressure 195/91 189/89 Blood Pressure [Left Arm] O2 Sat by Pulse Oximetry 96 Oxygen Delivery Method Oxygen Flow Rate FIO2% 05/21/25 20:20 05/21/25 20:20 05/21/25 20:25 Temperature Pulse Rate 77 Pulse Rate [Left Radial] Respiratory Rate 18 Blood Pressure 189/89 210/86 Blood Pressure [Left Arm] O2 Sat by Pulse Oximetry 95 Oxygen Delivery Method Oxygen Flow Rate FIO2% 05/21/25 20:25 05/21/25 20:25 05/21/25 20:30 Temperature Pulse Rate 79 75 Pulse Rate [Left Radial] Respiratory Rate 18 19 Blood Pressure 210/86 Blood Pressure [Left Arm] O2 Sat by Pulse Oximetry 95 96 Oxygen Delivery Method Oxygen Flow Rate FIO2% 05/21/25 20:30 05/21/25 20:30 05/21/25 20:30 Temperature Pulse Rate 75 Pulse Rate [Left Radial] Respiratory Rate 19 Blood Pressure 202/93 202/93 Blood Pressure [Left Arm] O2 Sat by Pulse Oximetry 96 Oxygen Delivery Method Oxygen Flow Rate FIO2% 05/21/25 20:35 05/21/25 20:35 05/21/25 20:40 Temperature Pulse Rate 75 96 H Pulse Rate [Left Radial] Respiratory Rate 19 29 H Blood Pressure 192/79 Blood Pressure [Left Arm] O2 Sat by Pulse Oximetry 96 95 Oxygen Delivery Method Oxygen Flow Rate FIO2% 05/21/25 20:40 05/21/25 20:45 05/21/25 20:45 Temperature Pulse Rate 91 H Pulse Rate [Left Radial] Respiratory Rate 21 Blood Pressure 207/104 224/105 Blood Pressure [Left Arm] O2 Sat by Pulse Oximetry 96 Oxygen Delivery Method Oxygen Flow Rate FIO2% 05/21/25 20:50 05/21/25 20:50 05/21/25 20:55 Temperature Pulse Rate 76 79 Pulse Rate [Left Radial] Respiratory Rate 19 19 Blood Pressure 202/92 Blood Pressure [Left Arm] O2 Sat by Pulse Oximetry 97 96 Oxygen Delivery Method Oxygen Flow Rate FIO2% 05/21/25 20:55 05/21/25 21:00 05/21/25 21:00 Temperature Pulse Rate 76 Pulse Rate [Left Radial] Respiratory Rate 17 Blood Pressure 211/100 231/105 Blood Pressure [Left Arm] O2 Sat by Pulse Oximetry 95 Oxygen Delivery Method Oxygen Flow Rate FIO2% 05/21/25 21:05 05/21/25 21:05 05/21/25 21:11 Temperature Pulse Rate 87 Pulse Rate [Left Radial] Respiratory Rate 12 Blood Pressure 201/85 179/83 Blood Pressure [Left Arm] O2 Sat by Pulse Oximetry 97 Oxygen Delivery Method Oxygen Flow Rate FIO2% 05/21/25 21:11 05/21/25 21:14 05/21/25 21:15 Temperature Pulse Rate 80 79 Pulse Rate [Left Radial] Respiratory Rate 22 19 Blood Pressure 173/81 Blood Pressure [Left Arm] O2 Sat by Pulse Oximetry 95 94 L Oxygen Delivery Method Oxygen Flow Rate FIO2% 05/21/25 21:25 05/21/25 21:45 05/21/25 21:50 Temperature 97.9 F Pulse Rate Pulse Rate [Left Radial] 88 Respiratory Rate 20 Blood Pressure Blood Pressure [Left Arm] 138/62 O2 Sat by Pulse Oximetry 96 Oxygen Delivery Method Room Air Nasal Cannula Nasal Cannula Oxygen Flow Rate 2 2 FIO2% 28 05/21/25 21:50 05/21/25 23:39 05/22/25 03:14 Temperature 98.0 F 98.1 F Pulse Rate 73 Pulse Rate [Left Radial] 79 80 Respiratory Rate 18 18 Blood Pressure Blood Pressure [Left Arm] 129/68 137/70 O2 Sat by Pulse Oximetry 94 L 98 98 Oxygen Delivery Method Room Air Room Air Oxygen Flow Rate FIO2% 05/22/25 07:00 05/22/25 08:00 05/22/25 08:19 Temperature 97.9 F Pulse Rate Pulse Rate [Left Radial] 69 Respiratory Rate 18 Blood Pressure Blood Pressure [Left Arm] 122/66 O2 Sat by Pulse Oximetry 98 Oxygen Delivery Method Nasal Cannula Room Air Room Air Oxygen Flow Rate 2 2 FIO2% 28 05/22/25 08:20 05/22/25 12:00 05/22/25 16:00 Temperature 98.3 F 98.1 F Pulse Rate 75 Pulse Rate [Left Radial] 76 78 Respiratory Rate 18 18 Blood Pressure Blood Pressure [Left Arm] 141/63 120/63 O2 Sat by Pulse Oximetry 98 100 99 Oxygen Delivery Method Room Air Room Air Oxygen Flow Rate FIO2% 05/22/25 19:00 05/22/25 19:50 05/22/25 20:17 Temperature 98.0 F Pulse Rate Pulse Rate [Left Radial] 79 Respiratory Rate 18 Blood Pressure Blood Pressure [Left Arm] 148/67 O2 Sat by Pulse Oximetry 95 Oxygen Delivery Method Nasal Cannula Nasal Cannula Nasal Cannula Oxygen Flow Rate 2 2 2 FIO2% 28 05/22/25 20:17 05/22/25 23:41 05/23/25 00:02 Temperature 97.9 F Pulse Rate 76 66 Pulse Rate [Left Radial] 88 Respiratory Rate 18 Blood Pressure Blood Pressure [Left Arm] 148/71 O2 Sat by Pulse Oximetry 96 97 96 Oxygen Delivery Method Nasal Cannula Oxygen Flow Rate 2 FIO2% 05/23/25 03:44 05/23/25 06:00 05/23/25 07:00 Temperature 98.1 F Pulse Rate 74 Pulse Rate [Left Radial] 79 Respiratory Rate 18 Blood Pressure Blood Pressure [Left Arm] 127/66 O2 Sat by Pulse Oximetry 98 97 Oxygen Delivery Method Nasal Cannula Nasal Cannula Oxygen Flow Rate 2 2 FIO2% 05/23/25 07:45 05/23/25 09:30 05/23/25 11:50 Temperature 98.1 F Pulse Rate Pulse Rate [Left Radial] 75 91 H Respiratory Rate 20 Blood Pressure Blood Pressure [Left Arm] 153/73 120/63 O2 Sat by Pulse Oximetry 95 Oxygen Delivery Method Nasal Cannula Room Air Oxygen Flow Rate 2 FIO2% 05/23/25 11:52 05/23/25 11:53 Temperature Pulse Rate Pulse Rate [Left Radial] 83 80 Respiratory Rate Blood Pressure Blood Pressure [Left Arm] 130/63 140/63 O2 Sat by Pulse Oximetry Oxygen Delivery Method Oxygen Flow Rate FIO2% Labs: Laboratory Last Values WBC 6.1 X10^3/uL (3.6-10.0) 05/23/25 05:33 RBC 5.06 X10^6/uL (4.7-6.0) 05/23/25 05:33 Hgb 14.8 g/dL (13.5-18.0) 05/23/25 05:33 Hct 42.0 % (42.0-54.0) 05/23/25 05:33 MCV 82.9 fL (80.0-100.0) 05/23/25 05:33 MCH 29.2 pg (27.0-34.0) 05/23/25 05:33 MCHC 35.2 g/dL (33.0-35.0) H 05/23/25 05:33 RDW 14.0 % (11.6-16.5) 05/23/25 05:33 Plt Count 156 X10^3/uL (150.0-450.0) 05/23/25 05:33 MPV 9.7 fL (7.4-11.0) 05/23/25 05:33 Neut % (Auto) 82.2 % (42.0-75.0) H 05/23/25 05:33 Lymph % (Auto) 14.6 % (21.0-51.0) L 05/23/25 05:33 [place] % (Auto) 2.4 % (0.0-13.0) 05/23/25 05:33 Eos % (Auto) 0.0 % (0.9-2.9) L 05/23/25 05:33 Baso % (Auto) 0.8 % (0.2-1.0) 05/23/25 05:33 Neut # (Auto) 5.0 x10^3/uL (2.2-4.8) H 05/23/25 05:33 Lymph # (Auto) 0.9 X10^3/uL (1.3-2.9) L 05/23/25 05:33 [place] # (Auto) 0.1 x10^3/uL (0.3-0.8) L 05/23/25 05:33 Eos # (Auto) 0.0 x10^3/uL (0.0-0.2) 05/23/25 05:33 Baso # (Auto) 0.0 X10^3/uL (0.0-0.1) 05/23/25 05:33 Absolute Nucleated RBC 0.0 /100WBC 05/23/25 05:33 PT 12.4 SECONDS (11.8-14.3) 05/21/25 16:26 INR Target Range - 05/21/25 16:26 INR 0.92 (0.8-1.3) 05/21/25 16:26 APTT 34.3 SECONDS (22.9-36.5) 05/21/25 16:26 PTT Comment - 05/21/25 16:26 D-Dimer 1.14 ug/ml (0.0-0.57) H 05/21/25 16:26 Sodium 139 mmol/L (136-145) 05/23/25 05:33 Corrected Sodium 143 mmol/L (136-145) 05/23/25 05:33 Potassium 3.8 mmol/L (3.5-5.1) 05/23/25 05:33 Chloride 99 mmol/L (98-107) 05/23/25 05:33 Carbon Dioxide 30.9 mmol/L (21-32) 05/23/25 05:33 BUN 26 mg/dL (7-18) H 05/23/25 05:33 Creatinine 1.10 mg/dL (0.70-1.30) 05/23/25 05:33 Est GFR (MDRD) Af Amer > 60 (>60) 05/23/25 05:33 Est GFR (MDRD) Non-Af > 60 (>60) 05/23/25 05:33 Glucose 271 mg/dL (65-99) H 05/23/25 05:33 POC Glucose (mg/dL) 295 mg/dL (65-99) H 05/23/25 11:02 Calcium 9.0 mg/dL (8.5-10.1) 05/23/25 05:33 Corrected Calcium TNP 05/23/25 05:33 Magnesium 2.1 mg/dL (2.0-2.9) 05/22/25 05:13 Total Bilirubin 0.70 mg/dL (0.2-1.0) 05/23/25 05:33 AST 24 Units/L (15-37) 05/23/25 05:33 ALT 35 Units/L (12-78) 05/23/25 05:33 Alkaline Phosphatase 81 Units/L (46-116) 05/23/25 05:33 Creatine Kinase 110 Units/L (39-308) 05/21/25 16:26 Troponin I High Sens 16.5 ng/L (4.0-60.0) 05/21/25 18:17 B-Natriuretic Peptide < 5.0 pg/mL (0-79) 05/21/25 16:26 Total Protein 6.6 g/dL (6.4-8.2) 05/23/25 05:33 Albumin 3.5 g/dL (3.4-5.0) 05/23/25 05:33 Globulin 3.1 g/dL (2.5-4.5) 05/23/25 05:33 Albumin/Globulin Ratio 1.1 Ratio (1.1-2.1) 05/23/25 05:33 Specimen Type Clean catch urine 05/22/25 01:45 Urine Color Yellow (YELLOW) 05/22/25 01:45 Urine Appearance Clear (CLEAR) 05/22/25 01:45 Urine pH 6.5 (5.0 - 8.0) 05/22/25 01:45 Ur Specific [place] 1.015 (1.000-1.030) 05/22/25 01:45 Urine Protein 2+ (NEGATIVE) 05/22/25 01:45 Urine Glucose (UA) Negative (NEGATIVE) 05/22/25 01:45 Urine Ketones Negative (NEGATIVE) 05/22/25 01:45 Urine Blood Negative (NEGATIVE) 05/22/25 01:45 Urine Nitrite Negative (NEGATIVE) 05/22/25 01:45 Urine Bilirubin Negative (NEGATIVE) 05/22/25 01:45 Urine Urobilinogen Normal (NORMAL) 05/22/25 01:45 Ur Leukocyte Esterase Negative (NEGATIVE) 05/22/25 01:45 Urine RBC 0-2 /HPF (0-3) 05/22/25 01:45 Urine WBC 0-2 /HPF (0-5) 05/22/25 01:45 Ur Squamous Epith Cells Negative /HPF (NEGATIVE) 05/22/25 01:45 Ur Renal Epithelial Cell Moderate /HPF (NEGATIVE) 05/22/25 01:45 Urine Bacteria Negative /HPF (NEGATIVE) 05/22/25 01:45 Ur Culture Indicated? No/not indicated 05/22/25 01:45 Resp Viral Panel (PCR) See scanned report 05/21/25 21:50 Reason For Visit: SOB, AMS Discharge Diagnosis All Active Problems (Updated 05/22/25 @ 10:18 by Liane Ralph MD) COPD exacerbation (Acute) Pneumonia (Acute) Hypokalemia (Acute) Altered mental status (Acute) Respiratory syncytial virus (RSV) as cause of acute bronchiolitis (Acute) Acute viral bronchitis (Acute) Epidermoid cyst of skin of back (Acute) Benign skin cyst (Acute) Encounter for postoperative care (Acute) URI (upper respiratory infection) (Acute) D-dimer, elevated (Acute) Dizzy (Acute) Diabetes mellitus (Chronic) Gastroesophageal reflux disease (Chronic) Plan of Treatment: Continue with present treatment and follow up plan. Pt is to keep follow up appointment as instructed and take medications as ordered. Discharge Medications Discharge Medications: No Known Drug Allergies Allergy (Unknown, Verified 09/02/24 13:59) CONTINUE taking the following medications semaglutide 1 mg/dose (4 mg/3 mL) subcutaneous pen injector (Ozempic) 1 mg subcut QWEEK 05/22/25 [History] New Prescriptions levofloxacin 500 mg tablet 500 mg PO QDAY 5 days #5 tabs 05/23/25 [Rx] prednisone 10 mg tablet 10 mg PO BID 5 days #10 tabs 05/23/25 [Rx] Discharge Disposition Assessment: No distress noted. Discharge Disposition: home with home health Discharge Condition: Stable Discharge Plan Discharge Plan Hospital Course: Patient is a 69-year-old male with a past medical history of type 2 diabetes, hypertension, lymphoma, hyperlipidemia and dementia presented with worsening dyspnea and cough. He was also complaining of intermittent chest pain. ER workup included labs which showed elevated D-dimer, low potassium. Troponin x [address] chest was done which did not show PE but did show ground glass opacities concerning for pneumonia. CT brain did not show any acute c hanges. Patient was started on IV antibiotics and admitted for further management. He is currently on 2L nasal cannula. He reports feeling better. He was also started on steroids. His labs were monitored daily and electrolytes replaced as needed. AIT was negative. He was doing well the following day. He did ambulate with respiratory and did not qualify for home oxygen. He was stable to be discharged home on p.o. antibiotics and steroids. He will follow- up with PCP as scheduled. Patient Disposition: HOME HEALTH SERVICE Condition: Stable Health Concerns: Post Hospitalization: new medications and changes needed to prevent readmission or further decline. Pt educated and given instructions on all concerns. Care Plan Goals: Problem: Infection Goal: Temperature within normal limits. Resolved infection. Instructions: Follow provided instructions. Follow up with primary physician as directed. Contact primary care physician or report to the closest Emergency Room if condition worsens. Plan of Treatment: Continue with present treatment and follow up plan. Pt is to keep follow up appointment as instructed and take medications as ordered. Assessment: No distress noted. Prescription drug monitoring program results: PDMP reviewed and no concerns identified Prescriptions: New levofloxacin 500 mg tablet 500 mg PO QDAY 5 Days Qty: 5 0RF prednisone 10 mg tablet 10 mg PO BID 5 Days Qty: 10 0RF Continued amlodipine 5 MG tablet 5 mg PO DAILY atorvastatin 40 mg tablet 40 mg PO HS metformin 500 mg tablet 500 mg PO QDAY gabapentin 600 mg tablet 600 mg PO QPM citalopram 10 mg tablet 10 mg PO QDAY glipizide 10 mg tablet 10 mg PO QDAY potassium chloride 20 mEq tablet,ER particles/crystals 20 meq PO TID temazepam 30 mg capsule 30 mg PO QPM pramipexole 0.25 mg tablet 0.25 mg PO TID hydrochlorothiazide 25 mg tablet 25 mg PO QDAY montelukast [Singulair] 10 mg tablet 10 mg PO QDAY Qty: 30 0RF albuterol sulfate 90 mcg/actuation HFA aerosol inhaler 2 puff inhalation Q6H PRNQty: 6.7 0RF fluticasone propionate [Flonase Allergy Relief] 50 mcg/actuation spray,suspension 1 spray intranasal QDAY Qty: 16 0RF Rx Instructions: administer into each nostril levocetirizine [Xyzal] 5 mg tablet 5 mg PO QDAY PRNQty: 30 0RF Ozempic 1 mg/dose (4 mg/3 mL) pen injector 1 mg SUBCUT QWEEK Follow ups/Referrals Follow ups/Referrals: SANTIAGO GALINDO [STAFF PHYSICIAN, Unknown] - 05/23/25 1:00 pm Referral Note: Update on discharge sent Julio Cueva [STAFF PHYSICIAN, MEDICAL] - 05/31/25 1:15 pm Instructions Instructions: Chronic Obstructive Pulmonary Disease Exacerbation, Hypokalemia, Delirium Stand Alone Forms: Find Help Web Site, [facility], [facility] Hospital Follow Up Care Print Language: FAROESE
== END 2025-05-23 18:05 | disposition home health service (06) ==
LOC: ER 16:16 → MED/SURG 16:16
PROVIDERS: ADMIT Obstetrics & Gynecology Obstetrics; ATTEND Internal Medicine
DX: K80.80 Other cholelithiasis without obstruction; E03.8 Other specified hypothyroidism; R79.1 Abnormal coagulation profile; J18.8 Other pneumonia, unspecified organism; E78.5 Hyperlipidemia, unspecified; E87.6 Hypokalemia; R41.82 Altered mental status, unspecified; E11.65 Type 2 diabetes mellitus with hyperglycemia; R94.31 Abnormal electrocardiogram [ECG] [EKG]; Z59.86 Financial insecurity; R26.89 Other abnormalities of gait and mobility; R07.89 Other chest pain; Z85.72 Personal history of non-Hodgkin lymphomas; I10 Essential (primary) hypertension; K21.9 Gastro-esophageal reflux disease without esophagitis; E80.6 Other disorders of bilirubin metabolism; R11.2 Nausea with vomiting, unspecified; R42 Dizziness and giddiness; J44.1 Chronic obstructive pulmonary disease with (acute) exacerbation; R06.02 Shortness of breath